=== PATIENT | male | born 1960 | race Caucasian/White ===

== ENCOUNTER 2022-05-05 16:51 | Emergency (ER) | payer OTHER ==
[2022-05-05] MEDS ORDERED: CEPHALEXIN500 MG PO (21:07)
== END 2022-05-05 21:25 | disposition home or self-care (01) ==
LOC: FER 16:51
DX: S61.211A Laceration without foreign body of left index finger without damage to nail, initial encounter (principal); I10 Essential (primary) hypertension; Z23 Encounter for immunization; Z91.048 Other nonmedicinal substance allergy status; W27.0XXA Contact with workbench tool, initial encounter; Y92.009 Unspecified place in unspecified non-institutional (private) residence as the place of occurrence of the external cause
CPT/HCPCS: 73130; 90471; 90715

== ENCOUNTER 2022-08-04 10:02 | Emergency (ER) | payer OTHER ==
[~2022-08-04 10:02] MED LIST: CEPHALEXIN500 MG PO
[2022-08-04 12:50] LABS: BASOPHIL 0.8 % (0-2); EOSINOPHIL 0.2 % (0-5); HCT 41.7 % (42.0-52.0); HGB 14.4 g/dl (13.2-18.0); LYMPHOCYTE 8.8 % (15-48); MCH 28.9 pg (25.0-31.0); MCHC 34.5 g/dL (32.0-36.0); MCV 83.7 fL (78.0-100.0); MONOCYTE 3.3 % (0-12); MPV 10.2 fL (6.0-9.5); NEUTROPHIL 86.7 % (41-80); NRBC 0; PLT 263 K/uL (150-400); RBC 4.98 M/uL (4.70-6.00); RDW 12.4 % (11.5-14.0); WBC 12.1 K/uL (4.0-10.5)
[2022-08-04 12:56] LABS: CREATININE 1.47 mg/dL (0.67-1.17); POTASSIUM 3.8 mmol/L (3.5-5.1)
== END 2022-08-04 14:06 | disposition home or self-care (01) ==
LOC: FER 10:02
PROVIDERS: Emergency Medicine
DX: R07.89 Other chest pain (principal); F41.9 Anxiety disorder, unspecified; I10 Essential (primary) hypertension; Z28.310 Unvaccinated for COVID-19; Z79.899 Other long term (current) drug therapy; Z88.8 Allergy status to other drugs, medicaments and biological substances
CPT/HCPCS: 36415; 71046; 80048; 82553; 84484; 85025; 93005